=== PATIENT | male | born 1965 | race American Indian/Alaskan Native ===

== ENCOUNTER 2020-10-16 13:31 | Inpatient (IN) | payer MEDICAID ==
[2020-10-16] MEDS ORDERED: MORPHINE 4 MG/1 ML INJ IM ONE (14:40)
[2020-10-16] MEDS ORDERED: ONDANSETRON 4 MG ODT TAB PO SCH (14:40)
[2020-10-16] MEDS ORDERED: ONDANSETRON 4 MG/2 ML INJ ONE (14:59)
[2020-10-16] MEDS ORDERED: MORPHINE 4 MG/1 ML INJ IM SCH (15:30)
[2020-10-16 18:48] LABS: Basophils # (Auto) 0.1 K/mm3 (0.0-0.1); Basophils % (Auto) 1.3 % (0.0-1.8); Eosinophils # (Auto) 0.2 K/mm3 (0.0-0.4); Eosinophils % (Auto) 4.5 % (0.0-4.3); Hematocrit 38.1 % (35.5-45.6); Hemoglobin 12.2 gm/dl (11.8-15.2); Lymphocytes % (Auto) 18.3 % (13.4-35.0); Mean Corpuscular HGB Conc 32 % (32-34); Mean Corpuscular Volume 96 fl (84-94); Monocytes # (Auto) 0.4 K/mm3 (0.0-0.8); Monocytes % (Auto) 8.2 % (0.0-7.3); Red Blood Count 3.96 M/mm3 (3.65-5.03); Red Cell Distribution Width 18.9 % (13.2-15.2)
[2020-10-16 18:50] LABS: Platelet Count 74 K/mm3 (140-440)
[2020-10-16 18:58] LABS: INR 1.1 (0.87-1.13)
[2020-10-16 18:59] LABS: Partial Thromboplastin Time 33.8 Sec. (24.2-36.6)
--- NOTE | 2020-10-16 19:06 | Emergency Department Report ---
ED General Adult HPI - General Chief complaint: Extremity Problem,Nontraumatic Stated complaint: HEMORRHAGE Time Seen by Provider: 10/16/20 14:39 Source: patient, EMS Mode of arrival: Stretcher Limitations: No Limitations - History of Present Illness Initial comments: The patient presents to the emergency department via EMS from dialysis center for hemorrhaging from his AV fistula in his left antebrachium. Patient is a dialysis recipient who goes to dialysis on Tuesdays, , Saturdays. Today during dialysis the patient's AV fistula began to bleed. Patient denies lightheadedness, shortness breath, or chest pain. Patient arrives to the em ergency department with a compression dressing to the AV fistula with blood coming through. -: Sudden Severity scale (0 -10): 1 Quality: aching Consistency: constant Improves with: none Worsens with: none Associated Symptoms: denies other symptoms Treatments Prior to Arrival: none - Related Data Allergies Allergy/AdvReac Type Severity Reaction Status Date / Time No Known Allergies Allergy Unverified 10/16/20 15:03 ED Review of Systems ROS: Stated complaint: HEMORRHAGE Other details as noted in HPI Comment: All other systems reviewed and negative Constitutional: denies: chills, fever Eyes: denies: eye pain, eye discharge, vision change ENT: denies: ear pain, throat pain Respiratory: denies: cough, shortness of breath, wheezing Cardiovascular: denies: chest pain, palpitations Endocrine: no symptoms reported Gastrointestinal: denies: abdominal pain, nausea, diarrhea Genitourinary: denies: urgency, dysuria Musculoskeletal: denies: back pain, joint swelling, arthralgia Skin: denies: rash, lesions Neurological: denies: headache, weakness, paresthesias Psychiatric: denies: anxiety, depression Hematological/Lymphatic: denies: easy bleeding, easy bruising ED Past Medical Hx - Past Medical History Previous Medical History?: Yes Hx Hypertension: Yes Hx Renal Disease: Yes Hx HIV: Yes - Social History Smoking Status: Never Smoker Substance Use Type: None ED Physical Exam - General Limitations: No Limitations General appearance: alert, in no apparent distress - Head Head exam: Present: atraumatic, normocephalic - Eye Eye exam: Present: normal appearance - ENT ENT exam: Present: mucous membranes moist - Neck Neck exam: Present: normal inspection - Respiratory Respiratory exam: Present: normal lung sounds bilaterally. Absent: respiratory distress - Cardiovascular Cardiovascular Exam: Present: regular rate, normal rhythm. Absent: systolic murmur, diastolic murmur, rubs, gallop - GI/Abdominal GI/Abdominal exam: Present: soft, normal bowel sounds. Absent: distended, tenderness - Rectal Rectal exam: Present: deferred - Extremities Exam Extremities exam: Present: normal inspection - Back Exam Back exam: Present: normal inspection - Neurological Exam Neurological exam: Present: alert, oriented X3, CN II-XII intact. Absent: motor sensory deficit - Psychiatric Psychiatric exam: Present: normal affect, normal mood - Skin Skin exam: Present: warm, dry, intact, normal color. Absent: rash ED Course Vital Signs 10/16/20 10/16/20 10/16/20 13:35 13:55 15:23 Temperature 97.7 F Pulse Rate 78 76 Respiratory 16 14 Rate Blood Pressure 121/76 Blood Pressure 127/86 [Right] O2 Sat by Pulse 96 99 97 Oximetry 10/16/20 10/16/20 15:44 18:00 Temperature Pulse Rate 71 78 Respiratory 16 16 Rate Blood Pressure Blood Pressure 153/78 151/86 [Right] O2 Sat by Pulse 97 97 Oximetry ED Medical Decision Making - Lab Data Result diagrams: 10/16/20 18:35 10/16/20 18:35 Lab Results 10/16/20 10/16/20 Range/Units 18:35 18:35 WBC 5.4 (4.5-11.0) K/mm3 RBC 3.96 (3.65-5.03) M/mm3 Hgb 12.2 (11.8-15.2) gm/dl Hct 38.1 (35.5-45.6) % MCV 96 H (84-94) fl MCH 31 (28-32) pg MCHC 32 (32-34) % RDW 18.9 H (13.2-15.2) % Plt Count 74 L (140-440) K/mm3 Lymph % (Auto) 18.3 (13.4-35.0) % [place]y % (Auto) 8.2 H (0.0-7.3) % Eos % (Auto) 4.5 H (0.0-4.3) % Baso % (Auto) 1.3 (0.0-1.8) % Lymph # (Auto) 1.0 L (1.2-5.4) K/mm3 [place] # (Auto) 0.4 (0.0-0.8) K/mm3 Eos # (Auto) 0.2 (0.0-0.4) K/mm3 Baso # (Auto) 0.1 (0.0-0.1) K/mm3 Seg Neutrophils % 67.7 (40.0-70.0) % Seg Neutrophils # 3.6 (1.8-7.7) K/mm3 PT 14.8 (12.2-14.9) Sec. INR 1.10 (0.87-1.13) APTT 33.8 (24.2-36.6) Sec. - Medical Decision Making Full contact precautions were worn Tourniquet via a blood pressure cuff was applied to the patient's left upper extremity Careful removal of the patient's pressure dressing was done in the AV fistula has what appears to be erosion with possible removal of the scab Was able to apply pressure dressing to the fistula will control the bleeding Spoke to Dr. Sanford who asked to be added as a consult and the patient will be admitted Critical Care Time: Yes Critical care time in (mins) excluding proc time.: 35 Critical care attestation.: If time is entered above; I have spent that time in minutes in the direct care of this critically ill patient, excluding procedure time. ED Disposition Clinical Impression: Hemorrhage of arteriovenous fistula Disposition: OP ADMIT IP TO THIS HOSP Is pt being admited?: Yes Does the pt Need Aspirin: No Condition: Fair Referrals: PRIMARY CARE, [Primary Care Provider] - 3-5 Days
[2020-10-16 19:08] LABS: Albumin 3.4 g/dL (3.9-5); Calcium 8.9 mg/dL (8.4-10.2)
[2020-10-16] MEDS ORDERED: ONDANSETRON 4 MG/2 ML INJ IV PRN ×2 (19:17→23:20)
[2020-10-16] MEDS ORDERED: ACETAMINOPHEN 325 MG TAB PO PRN ×2 (19:17→23:20)
--- NOTE | 2020-10-16 19:40 | Event Note ---
Date: 10/16/[address] Ruiz. Pt currently asymptomatic and bleeding controlled. Will plan on placing permcath for dialysis access. Fistula will need to be surgically revised to allow use.
[2020-10-17] MEDS: FAMOTIDINE 20 MG/2 ML INJ IV SCH ×2 (00:20→13:23)
[2020-10-17 06:45] LABS: Basophils # (Auto) 0.1 K/mm3 (0.0-0.1); Basophils % (Auto) 1.9 % (0.0-1.8); Eosinophils # (Auto) 0.3 K/mm3 (0.0-0.4); Eosinophils % (Auto) 5.2 % (0.0-4.3); Hematocrit 37.6 % (35.5-45.6); Hemoglobin 12.1 gm/dl (11.8-15.2); Lymphocytes % (Auto) 20.5 % (13.4-35.0); Mean Corpuscular HGB Conc 32 % (32-34); Mean Corpuscular Volume 95 fl (84-94); Monocytes # (Auto) 0.4 K/mm3 (0.0-0.8); Monocytes % (Auto) 7.2 % (0.0-7.3); Red Blood Count 3.95 M/mm3 (3.65-5.03); Red Cell Distribution Width 19.3 % (13.2-15.2)
[2020-10-17 06:46] LABS: Platelet Count 85 K/mm3 (140-440)
[2020-10-17 06:57] LABS: Albumin 3.5 g/dL (3.9-5); Blood Urea Nitrogen 40 mg/dL (9-20); Calcium 8.5 mg/dL (8.4-10.2); Hemolysis Index 2
--- NOTE | 2020-10-17 07:11 | History and Physical Report ---
History of Present Illness Date of examination: 10/16/20 Date of admission: 10/16/20 23:20 Chief complaint: Bleeding from AV fistula site History of present illness: 55-year-old male with history of end-stage renal disease hypertension and HIV comes in for continuous bleeding from the AV fistula site on the left arm. Patient went to dialysis and had dialysis today. After dialysis the site of AV fistula was continuously bleeding because of which patient was sent to the emergency room. In the emergency room there was a 1 cm gap in the AV fistula. Pressure dressing was applied to stop the bleeding. Vascular surgery/IR was consulted. No syncope or lightheadedness. No chest pain or shortness of breath. Bleeding was controlled in the emergency room with Mehran wrap pressure dressing. No fever or chills. No exposure to Covid virus. - Past Medical History --Previous Medical History?: Yes --Hypertension: Yes --Renal Disease: Yes --HIV: Yes Past surgical history AV fistula - Social History Smoking Status: Never Smoker Substance Use Type: None Family history Htn Review of Systems ROS: Stated complaint: HEMORRHAGE Other details as noted in HPI Comment: All other systems reviewed and negative Constitutional: denies: chills, fever Eyes: denies: eye pain, eye discharge, vision change ENT: denies: ear pain, throat pain Respiratory: denies: cough, shortness of breath, wheezing Cardiovascular: denies: chest pain, palpitations Endocrine: no symptoms reported Gastrointestinal: denies: abdominal pain, nausea, diarrhea Genitourinary: denies: urgency, dysuria Musculoskeletal: denies: back pain, joint swelling, arthralgia Skin: denies: rash, lesions Neurological: denies: headache, weakness, paresthesias Psychiatric: denies: anxiety, depression Hematological/Lymphatic: denies: easy bleeding, easy bruising Medications and Allergies Allergies Allergy/AdvReac Type Severity Reaction Status Date / Time No Known Allergies Allergy Unverified 10/16/20 15:03 Active Meds: Active Medications Acetaminophen (Acetaminophen 325 Mg Tab) 650 mg PO Q4H PRN PRN Reason: Pain MILD(1-3)/Fever >100.5/HOWELL Last Admin: 10/16/20 23:12 Dose: 650 mg Documented by: Famotidine (Famotidine 20 Mg/2 Ml Inj) 10 mg IV [facility] Last Admin: 10/17/20 00:20 Dose: 10 mg Documented by: Hydromorphone HCl (Hydromorphone 1 Mg/1 Ml Inj) 0.5 mg IV Q3H PRN PRN Reason: Pain , Severe (7-10) Morphine Sulfate (Morphine 2 Mg/1 Ml Inj) 2 mg IV Q4H PRN PRN Reason: Pain, Moderate (4-6) Ondansetron HCl (Ondansetron 4 Mg/2 Ml Inj) 4 mg IV Q8H PRN PRN Reason: Nausea And Vomiting Sodium Chloride (Sodium Chloride 0.9% 10 Ml Flush Syringe) 10 ml IV BID [facility] Last Admin: 10/16/20 22:47 Dose: 10 ml Documented by: Sodium Chloride (Sodium Chloride 0.9% 10 Ml Flush Syringe) 10 ml IV PRN PRN PRN Reason: LINE FLUSH Exam - Constitutional Vitals: Temp Pulse Resp BP Pulse Ox 97.9 F 70 16 122/79 91 10/17/20 03:53 10/17/20 03:53 10/17/20 03:53 10/17/20 03:53 10/17/20 03:53 General appearance: Present: no acute distress, well-nourished - EENT Eyes: Present: PERRL ENT: hearing intact, clear oral mucosa - Neck Neck: Present: supple, normal ROM - Respiratory Respiratory effort: normal Respiratory: bilateral: CTA - Cardiovascular Heart Sounds: Present: S1 & S2. Absent: rub, click - Extremities Extremities: pulses symmetrical, No edema, abnormal (Bleeding from left AV fistula) Extremity abnormal: other (Bleeding from left AV fistula) Peripheral Pulses: within normal limits - Abdominal General gastrointestinal: Present: soft, non-tender, non-distended, normal bowel sounds Male genitourinary: Present: normal - Integumentary Integumentary: Present: clear, warm, dry - Musculoskeletal Musculoskeletal: gait normal, strength equal bilaterally - Psychiatric Psychiatric: appropriate mood/affect, intact judgment & insight - Neurologic Neurologic: CNII-XII intact, moves all extremities Results - Labs CBC & Chem 7: 10/17/20 05:12 10/16/20 18:35 Labs: Laboratory Last Values WBC 4.8 K/mm3 (4.5-11.0) 10/17/20 05:12 RBC 3.95 M/mm3 (3.65-5.03) 10/17/20 05:12 Hgb 12.1 gm/dl (11.8-15.2) 10/17/20 05:12 Hct 37.6 % (35.5-45.6) 10/17/20 05:12 MCV 95 fl (84-94) H 10/17/20 05:12 MCH 31 pg (28-32) 10/17/20 05:12 MCHC 32 % (32-34) 10/17/20 05:12 RDW 19.3 % (13.2-15.2) H 10/17/20 05:12 Plt Count 85 K/mm3 (140-440) L 10/17/20 05:12 Lymph % (Auto) 20.5 % (13.4-35.0) 10/17/20 05:12 [place] % (Auto) 7.2 % (0.0-7.3) 10/17/20 05:12 Eos % (Auto) 5.2 % (0.0-4.3) H 10/17/20 05:12 Baso % (Auto) 1.9 % (0.0-1.8) H 10/17/20 05:12 Lymph # (Auto) 1.0 K/mm3 (1.2-5.4) L 10/17/20 05:12 [place] # (Auto) 0.4 K/mm3 (0.0-0.8) 10/17/20 05:12 Eos # (Auto) 0.3 K/mm3 (0.0-0.4) 10/17/20 05:12 Baso # (Auto) 0.1 K/mm3 (0.0-0.1) 10/17/20 05:12 Seg Neutrophils % 65.2 % (40.0-70.0) 10/17/20 05:12 Seg Neutrophils # 3.2 K/mm3 (1.8-7.7) 10/17/20 05:12 PT 14.8 Sec. (12.2-14.9) 10/16/20 18:35 INR 1.10 (0.87-1.13) 10/16/20 18:35 APTT 33.8 Sec. (24.2-36.6) 10/16/20 18:35 Sodium 133 mmol/L (137-145) L 10/16/20 18:35 Potassium 4.7 mmol/L (3.6-5.0) 10/16/20 18:35 Chloride 94.5 mmol/L (98-107) L 10/16/20 18:35 Carbon Dioxide 23 mmol/L (22-30) 10/16/20 18:35 Anion Gap 20 mmol/L 10/16/20 18:35 BUN 36 mg/dL (9-20) H 10/16/20 18:35 Creatinine 8.4 mg/dL (0.8-1.3) H 10/16/20 18:35 Estimated GFR 8 ml/min 10/16/20 18:35 BUN/Creatinine Ratio 4 % 10/16/20 18:35 Glucose 70 mg/dL (75-100) L 10/16/20 18:35 POC Glucose 61 mg/dL (70-105) L 10/16/20 22:38 Calcium 8.9 mg/dL (8.4-10.2) 10/16/20 18:35 Total Bilirubin 0.30 mg/dL (0.1-1.2) 10/16/20 18:35 AST 14 units/L (5-40) 10/16/20 18:35 ALT 5 units/L (7-56) L 10/16/20 18:35 Alkaline Phosphatase 248 units/L (35-129) H 10/16/20 18:35 Total Protein 7.0 g/dL (6.3-8.2) 10/16/20 18:35 Albumin 3.4 g/dL (3.9-5) L 10/16/20 18:35 Albumin/Globulin Ratio 1.0 % 10/17/20 05:12 Franco/IV: Voiding Method Toilet Assessment and Plan Advance Directives: Yes (Full code) VTE prophylaxis?: Chemical Plan of care discussed with patient/family: Yes - Patient Problems (1) Hemorrhage of arteriovenous fistula Current Visit: Yes Status: Acute Qualifiers: Encounter type: initial encounter Qualified Code(s): T82.838A - Hemorrhage due to vascular prosthetic devices, implants and grafts, initial encounter Plan to address problem: For AV fistula repair in the morning Vascular surgery/IR consulted (2) End stage renal disease on dialysis Current Visit: Yes Status: Chronic Plan to address problem: Continue hemodialysis as per schedule (3) Hypertension Current Visit: Yes Status: Chronic Qualifiers: Hypertension type: primary hypertension Qualified Code(s): I10 - Essential (primary) hypertension Plan to address problem: Continue antihypertensives (4) HIV (human immunodeficiency virus infection) Current Visit: Yes Status: Chronic Qualifiers: HIV symptom status: asymptomatic, with no history of HIV-related illness Qualified Code(s): Z21 - Asymptomatic human immunodeficiency virus [HIV] infection status Plan to address problem: No home medications were reconciliation (5) DVT prophylaxis Current Visit: Yes Status: Acute Plan to address problem: On SCDs and GI prophylaxis
[2020-10-17 07:20] LABS: Alanine Aminotransferase < 5 units/L (7-56); BUN/Creatinine Ratio 4
--- NOTE | 2020-10-17 09:34 | Consultation ---
History of Present Illness - Reason for Consult Consult date: 10/17/20 Ruptured fistula - History of Present Illness Patient with a history of end-stage renal disease on hemodialysis through a left forearm Abdiel fistula. I the patient's last normal dialysis was Wednesday. On Wednesday, the patient was at [facility] and a small scab overlying his fistula became dislodged with the patient experienced significant blood loss. He presented to the emergency department and his blood loss temporized. On examination, the patient has a palpable thrill below and above his pressure dressing in his left forearm. Past History Past Medical History: dialysis, ESRD Past Surgical History: Other (Left Abdiel) Social history: no significant social history Family history: no significant family history Medications and Allergies Allergies Allergy/AdvReac Type Severity Reaction Status Date / Time No Known Allergies Allergy Unverified 10/16/20 15:03 Active Meds: Active Medications Acetaminophen (Acetaminophen 325 Mg Tab) 650 mg PO Q4H PRN PRN Reason: Pain MILD(1-3)/Fever >100.5/HOWELL Last Admin: 10/16/20 23:12 Dose: 650 mg Documented by: Famotidine (Famotidine 20 Mg/2 Ml Inj) 10 mg IV QAM [facility] Last Admin: 10/17/20 00:20 Dose: 10 mg Documented by: Hydromorphone HCl (Hydromorphone 1 Mg/1 Ml Inj) 0.5 mg IV Q3H PRN PRN Reason: Pain , Severe (7-10) Morphine Sulfate (Morphine 2 Mg/1 Ml Inj) 2 mg IV Q4H PRN PRN Reason: Pain, Moderate (4-6) Ondansetron HCl (Ondansetron 4 Mg/2 Ml Inj) 4 mg IV Q8H PRN PRN Reason: Nausea And Vomiting Sodium Chloride (Sodium Chloride 0.9% 10 Ml Flush Syringe) 10 ml IV BID [facility] Last Admin: 10/16/20 22:47 Dose: 10 ml Documented by: Sodium Chloride (Sodium Chloride 0.9% 10 Ml Flush Syringe) 10 ml IV PRN PRN PRN Reason: LINE FLUSH Review of Systems All systems: negative Exam - Constitutional Vitals: Temp Pulse Resp BP Pulse Ox 98.0 F 71 19 137/82 99 10/17/20 07:59 10/17/20 07:59 10/17/20 07:59 10/17/20 07:59 10/17/20 07:59 General appearance: Present: no acute distress - EENT Eyes: Present: EOM intact ENT: hearing intact - Neck Neck: Present: supple - Respiratory Respiratory effort: normal - Extremities Extremities: abnormal - Abdominal General gastrointestinal: Present: deferred Male genitourinary: Present: deferred - Rectal Rectal Exam: deferred - Psychiatric Psychiatric: appropriate mood/affect, cooperative Results - Labs CBC & Chem 7: 10/17/20 05:12 10/17/20 05:12 Labs: Abnormal lab results 10/16/20 10/16/20 10/16/20 Range/Units 18:35 18:35 22:38 MCV 96 H (84-94) fl RDW 18.9 H (13.2-15.2) % Plt Count 74 L (140-440) K/mm3 [place] % (Auto) 8.2 H (0.0-7.3) % Eos % (Auto) 4.5 H (0.0-4.3) % Baso % (Auto) (0.0-1.8) % Lymph # (Auto) 1.0 L (1.2-5.4) K/mm3 Sodium 133 L (137-145) mmol/L Chloride 94.5 L (98-107) mmol/L BUN 36 H (9-20) mg/dL Creatinine 8.4 H (0.8-1.3) mg/dL Glucose 70 L (75-100) mg/dL POC Glucose 61 L (70-105) mg/dL ALT 5 L (7-56) units/L Alkaline Phosphatase 248 H (35-129) units/L Albumin 3.4 L (3.9-5) g/dL 10/17/20 10/17/20 Range/Units 05:12 05:12 MCV 95 H (84-94) fl RDW 19.3 H (13.2-15.2) % Plt Count 85 L (140-440) K/mm3 [place] % (Auto) (0.0-7.3) % Eos % (Auto) 5.2 H (0.0-4.3) % Baso % (Auto) 1.9 H (0.0-1.8) % Lymph # (Auto) 1.0 L (1.2-5.4) K/mm3 Sodium (137-145) mmol/L Chloride (98-107) mmol/L BUN 40 H (9-20) mg/dL Creatinine 9.6 H (0.8-1.3) mg/dL Glucose 54 L (75-100) mg/dL POC Glucose (70-105) mg/dL ALT < 5 L (7-56) units/L Alkaline Phosphatase 261 H (35-129) units/L Albumin 3.5 L (3.9-5) g/dL Assessment and Plan Patient will be brought down for placement of PermCath for dialysis access. At that time, we will evaluate the patient's forearm fistula. Based on findings, the patient will likely require surgical revision of his fistula. This will be scheduled for tomorrow.
[2020-10-17] MEDS ORDERED: DEXTROSE 50% IN WATER (25GM) 50 ML SYRINGE IV ONE ×3 (09:43→10:20)
[2020-10-17] MEDS ORDERED: SODIUM CHLORIDE 0.9% 500 ML 1,000 ML ONE (10:05)
[2020-10-17] MEDS ORDERED: HEPARIN/NS 5000 UNIT/500ML 1,000 ML IR ONE (10:08)
[2020-10-17] MEDS: MIDAZOLAM 5 MG/5 ML INJ MDV IV ONE ×2 (10:41→11:28)
[2020-10-17] MEDS: fentaNYL 100 MCG/2 ML INJ ONE ×3 (10:41→11:33)
[2020-10-17] MEDS: LIDOCAINE (1%) 10 MG/1 ML VIAL 20 ML MDV ONE ×2 (10:45→11:00)
[2020-10-17] MEDS: HEPARIN 10,000 UNITS/10 ML VIAL ONE ×2 (11:12→11:13)
[2020-10-17] MEDS ORDERED: LIDOCAINE (2%) 20 MG/1 ML VIAL 20 ML MDV INFILTRATI ONE (11:17)
--- NOTE | 2020-10-17 11:51 | Operative Report ---
Operative Report Operative Report: Exam: Ultrasound and fluoroscopic guided placement of tunneled hemodialysis catheter, left Abdiel fistulogram with venoplasty and surgical closure of wound Clinical indication: Patient with a history of end-stage renal disease on hemodialysis through a left Abdiel fistula. Patient ruptured his Abdiel fistula yesterday Date: 10/17/2020 Procedure: Following an explanation of the risk, benefits and alternatives; written informed consent was obtained. The patient was brought to the angiographic suite and placed in supine position on the examination table. Initial ultrasound evaluation of the patient's right neck demonstrated a patent right internal jugular vein. The patient's right neck was prepped and draped in the usual sterile fashion. 1% lidocaine was used for anesthesia. Under ultrasound guidance, the right internal jugular vein was cannulated with a 7 cm 18-gauge needle. A 0.035 guidewire only advanced 2 to 3 cm distally. Ultrasound of the inferior aspect of the internal jugular vein demonstrated significant narrowing likely tapering into occlusion. Additional lidocaine was administered to the patient's right neck and the external jugular vein was cannulated. A 0.018 guidewire was advanced through the external jugular vein. The needle was removed and a microsheath placed. Contrast was injected through the micro sheath which demonstrates occlusion of the distal external jugular vein with only collateral flow extending towards the heart. Given no inline flow from the right side, decision was made to approach from the left. Initial ultrasound evaluation of the patient's left neck demonstrated a patent left internal jugular vein. The patient's left neck was prepped and draped in the usual sterile fashion. 1% lidocaine was used for anesthesia. Under ultrasound guidance, the internal jugular vein was cannulated with a 7 cm 21-gauge needle. A 0.018 guidewire was advanced under fluoroscopy to the right atrium. The needle was removed and a microsheath placed. The 0.018 guidewire was exchanged for a 0.035 guidewire which was advanced into the IVC for anchorin g and to document intravenous positioning. An appropriate catheter site was chosen along the left chest wall. 1% lidocaine was used for anesthesia at the catheter exit site and along the tunnel tract. A Bard 23 cm glidepath tunneled hemodialysis catheter was then tunneled antegrade from the catheter exit site to the venotomy site. Following serial dilation over the guidewire under fluoroscopy a 15 Danish peel- away sheath was placed over the guidewire under fluoroscopy and advanced centrally. The guidewire and trocar were removed and the catheter advanced through the peel-away sheath the position the tip in the cavoatrial junction. The peel-away sheath was removed. Both ports flushed and aspirated easily and were then locked with appropriate volumes of heparin. The venotomy was closed using 4-0 Vicryl suture and Dermabond. 3-0 Vicryl suture was used to approximate the catheter exit site and to anchor the catheter. Attention was then turned to the patient's forearm Abdiel fistula. A palpable thrill was present above and below the patient's pressure dressing. The patient's forearm was sterilely prepped and draped. 1% lidocaine was used for anesthesia. The fistula was accessed below the pressure dressing using a 7 cm 18-gauge needle. A 0.035 guidewire was advanced centrally easily. The needle was removed and a microsheath placed. Contrast was injected to the micro sheath was demonstrated that the fistula remains patent. 2 large pseudoaneurysms are identified. The 0.035 guidewire was again advanced through the micro sheath and the micro sheath exchanged for a 7 Danish vascular sheath. Contrast was injected through the vascular sheath and an appropriate occlusion site was identified proximal to the first pseudoaneurysm. A 10 mm x 40 mm balloon was then advanced over the guidewire into the proximal aspect of the fistula and insufflated. Additional pressure externally was also utilized to occlude the fistula temporarily. The pressure dressing was then removed. A large erosive area was identified overlying the first of the 2 pseudoaneurysms. It measures approximately 1.3 cm in diameter. The erosion was approximated using interrupted 3-0 Vicryl suture. The balloon was deflated and pressure removed which demonstrated adequate hemostasis. The sheath was then removed and hemostasis achieved at the access site using 4-0 Vicryl suture. Pressure dressing was then reapplied. The patient tolerated the procedure well. There were no immediate postprocedure complications. Conscious sedation was performed under the guidance of radiologic nursing. Continuous cardiopulmonary monitoring was utilized. Impression: Ultrasound and fluoroscopic guided placement of left internal jugular vein tunneled hemodialysis catheter. 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 Numeral 3) fistulogram with venoplasty of the patient's left forearm Abdiel fistula. Normal 4) approximation of a 1.2 cm erosion in the first pseudoaneurysm using 3- 0 Vicryl suture interrupted. The patient will need to be scheduled for revision versus ligation of his Abdiel fistula tomorrow.
--- NOTE | 2020-10-17 13:06 | Progress Note ---
Assessment and Plan Assessment and plan: - (1) Hemorrhage of arteriovenous fistula Current Visit: Yes Status: Acute Qualifiers: Encounter type: initial encounter Qualified Code(s): T82.838A - Hemorrhage due to vascular prosthetic devices, implants and grafts, initial encounter Plan to address problem: For AV fistula repair in the morning Vascular surgery/IR consulted (2) End stage renal disease on dialysis Current Visit: Yes Status: Chronic Plan to address problem: Continue hemodialysis as per schedule (3) Hypertension Current Visit: Yes Status: Chronic Qualifiers: Hypertension type: primary hypertension Qualified Code(s): I10 - Essential (primary) hypertension Plan to address problem: Continue antihypertensives (4) HIV (human immunodeficiency virus infection) Current Visit: Yes Status: Chronic Qualifiers: HIV symptom status: asymptomatic, with no history of HIV-related illness Qualified Code(s): Z21 - Asymptomatic human immunodeficiency virus [HIV] infection status Plan to address problem: No home medications were reconciliation (5) DVT prophylaxis Current Visit: Yes Status: Acute Plan to address problem: On [facility] [place] Patient presented with bleeding from left av fistula. He was taken to OR and had Ultrasound and fluoroscopic guided placement of tunneled hemodialysis catheter, left Abdiel fistulogram with venoplasty and surgical closure of wound. His Dining Services Manager does not come here. His last dialysis was on Wednesday, 2 days ago. Will consult Nephrology front office medical assistant History Interval history: Patient presented with bleeding from left av fistula Hospitalist Physical - Physical exam Narrative exam: Gen: Not in acute distress, lying in bed HEENT: Normocephalic, atraumatic Neck : supple, no JVD Heart:S1 and S2 reg, no murmurs, rubs or gallop Lungs: clear to auscultation bilaterally, no wheeze Abd: Soft , non tender, non distended, normal bowel sounds Ext: Dressing over surgical site left forearm, no cyanosis Neuro: Awake, alert, oriented, moves all ext - Constitutional Vitals: Temp Pulse Resp BP Pulse Ox 98.0 F 71 19 137/82 99 10/17/20 07:59 10/17/20 07:59 10/17/20 07:59 10/17/20 07:59 10/17/20 07:59 General appearance: Present: no acute distress Results - Labs CBC & Chem 7: 10/17/20 05:12 10/17/20 05:12 Labs: Laboratory Last Values WBC 4.8 K/mm3 (4.5-11.0) 10/17/20 05:12 RBC 3.95 M/mm3 (3.65-5.03) 10/17/20 05:12 Hgb 12.1 gm/dl (11.8-15.2) 10/17/20 05:12 Hct 37.6 % (35.5-45.6) 10/17/20 05:12 MCV 95 fl (84-94) H 10/17/20 05:12 MCH 31 pg (28-32) 10/17/20 05:12 MCHC 32 % (32-34) 10/17/20 05:12 RDW 19.3 % (13.2-15.2) H 10/17/20 05:12 Plt Count 85 K/mm3 (140-440) L 10/17/20 05:12 Lymph % (Auto) 20.5 % (13.4-35.0) 10/17/20 05:12 [place] % (Auto) 7.2 % (0.0-7.3) 10/17/20 05:12 Eos % (Auto) 5.2 % (0.0-4.3) H 10/17/20 05:12 Baso % (Auto) 1.9 % (0.0-1.8) H 10/17/20 05:12 Lymph # (Auto) 1.0 K/mm3 (1.2-5.4) L 10/17/20 05:12 [place] # (Auto) 0.4 K/mm3 (0.0-0.8) 10/17/20 05:12 Eos # (Auto) 0.3 K/mm3 (0.0-0.4) 10/17/20 05:12 Baso # (Auto) 0.1 K/mm3 (0.0-0.1) 10/17/20 05:12 Seg Neutrophils % 65.2 % (40.0-70.0) 10/17/20 05:12 Seg Neutrophils # 3.2 K/mm3 (1.8-7.7) 10/17/20 05:12 PT 14.8 Sec. (12.2-14.9) 10/16/20 18:35 INR 1.10 (0.87-1.13) 10/16/20 18:35 APTT 33.8 Sec. (24.2-36.6) 10/16/20 18:35 Sodium 138 mmol/L (137-145) 10/17/20 05:12 Potassium 4.9 mmol/L (3.6-5.0) 10/17/20 05:12 Chloride 99.6 mmol/L (98-107) 10/17/20 05:12 Carbon Dioxide 22 mmol/L (22-30) 10/17/20 05:12 Anion Gap 21 mmol/L 10/17/20 05:12 BUN 40 mg/dL (9-20) H 10/17/20 05:12 Creatinine 9.6 mg/dL (0.8-1.3) H 10/17/20 05:12 Estimated GFR 7 ml/min 10/17/20 05:12 BUN/Creatinine Ratio 4 % 10/17/20 05:12 Glucose 54 mg/dL (75-100) L 10/17/20 05:12 POC Glucose 78 mg/dL (70-105) 10/17/20 10:41 Calcium 8.5 mg/dL (8.4-10.2) 10/17/20 05:12 Total Bilirubin 0.40 mg/dL (0.1-1.2) 10/17/20 05:12 AST 12 units/L (5-40) 10/17/20 05:12 ALT < 5 units/L (7-56) L 10/17/20 05:12 Alkaline Phosphatase 261 units/L (35-129) H 10/17/20 05:12 Total Protein 7.1 g/dL (6.3-8.2) 10/17/20 05:12 Albumin 3.5 g/dL (3.9-5) L 10/17/20 05:12 Albumin/Globulin Ratio 1.0 % 10/17/20 05:12 Franco/IV: Voiding Method Toilet Active Medications - Current Medications Current Medications: Generic Name Dose Route Start Last Admin Trade Name Freq PRN Reason Stop Dose Admin Acetaminophen 650 mg 10/16/20 19:17 10/16/20 23:12 Acetaminophen 325 Mg Tab PO 650 mg Q4H PRN Administration Pain MILD(1-3)/Fever >100.5/HOWELL Famotidine 10 mg 10/16/20 23:45 10/17/20 00:20 Famotidine 20 Mg/2 Ml Inj IV 10 mg QAM STEFFEN Administration Hydromorphone HCl 0.5 mg 10/16/20 23:20 Hydromorphone 1 Mg/1 Ml Inj IV Q3H PRN Pain , Severe (7-10) Morphine Sulfate 2 mg 10/16/20 23:20 Morphine 2 Mg/1 Ml Inj IV Q4H PRN Pain, Moderate (4-6) Ondansetron HCl 4 mg 10/16/20 19:17 Ondansetron 4 Mg/2 Ml Inj IV Q8H PRN Nausea And Vomiting Sodium Chloride 10 ml 10/16/20 22:00 10/16/20 22:47 Sodium Chloride 0.9% 10 Ml Flush Syringe IV 10 ml BID STEFFEN Administration Sodium Chloride 10 ml 10/16/20 19:17 Sodium Chloride 0.9% 10 Ml Flush Syringe IV PRN PRN LINE FLUSH
[2020-10-17] MEDS: MORPHINE 2 MG/1 ML INJ IV PRN ×2 (13:34→21:05)
[2020-10-17] MEDS ORDERED: SODIUM CHLORIDE 0.9% 100 ML IV PRN (14:19)
[2020-10-17 16:12] LABS: Hepatitis B Surface Antigen Non-Reactive (Negative); Hepatitis C Virus Antibody Non-Reactive (NonReactive)
[2020-10-18] MEDS: HYDROmorphone 1 MG/1 ML INJ IV PRN ×5 (00:50→22:31)
[2020-10-18] MEDS ORDERED: fentaNYL 100 MCG/2 ML INJ ONE ×3 (07:08→10:57)
[2020-10-18] MEDS ORDERED: BUPIVACAINE/PF (0.5%) 5 MG/1 ML 30 ML VIAL INFILTRATI ONE ×2 (07:28→09:49)
[2020-10-18] MEDS ORDERED: HEPARIN 10,000 UNITS/10 ML VIAL ONE (07:28)
[2020-10-18] MEDS ORDERED: SODIUM CHLORIDE 0.9% 500 ML 500 ML ONE (07:28)
--- NOTE | 2020-10-18 07:45 | Anesthesia Day of Surgery ---
Anesthesia Day of Surgery - Day of Surgery Patient Examined: Yes Patient H&P Reviewed: Yes Patient is NPO: Yes
--- NOTE | 2020-10-18 07:47 | Anesthesia Consultation ---
Anesthesia Consult and Med Hx Date of service: 10/18/20 - Airway Anesthetic Teeth Evaluation: Poor ROM Head & Neck: Adequate Mental/Hyoid Distance: Adequate Mallampati Class: Class III Intubation Access Assessment: Possibly Difficult - Pre-Operative Health Status ASA Pre-Surgery Classification: ASA3 Proposed Anesthetic Plan: General - Pulmonary Hx Smoking: No - Cardiovascular System Hx Hypertension: Yes - Endocrine Hx Renal Disease: Yes Hx End Stage Renal Disease: Yes (Last HD Wednesday) - Additional Comments Anesthesia Medical History Comments: HIV+
[2020-10-18] MEDS ORDERED: propofoL 200 MG/20 ML VIAL IV ONE (07:52)
[2020-10-18] MEDS ORDERED: ONDANSETRON 4 MG/2 ML INJ IV PRN (08:00)
[2020-10-18] MEDS ORDERED: HYDROmorphone 1 MG/1 ML INJ IV PRN ×2 (08:00)
--- NOTE | 2020-10-18 08:08 | Consultation ---
History of Present Illness - Reason for Consult Consult date: 10/18/20 end stage renal disease Past History Past Medical History: dialysis, ESRD Past Surgical History: Other (Left Abdiel) Social history: no significant social history Family history: no significant family history Medications and Allergies Allergies Allergy/AdvReac Type Severity Reaction Status Date / Time No Known Allergies Allergy Unverified 10/16/20 15:03 Home Medications Medication Instructions Recorded Confirmed Last Taken Type Amiodarone [Cordarone 200 MG TAB] 200 mg PO DAILY 10/17/20 10/17/20 1 Day Ago History ~10/16/20 Aspirin EC [Halfprin EC] 81 mg PO QDAY 10/17/20 10/17/20 1 Day Ago History ~10/16/20 AtorvaSTATin [Lipitor] 40 mg PO QHS 10/17/20 10/17/20 1 Day Ago History ~10/16/20 Dolutegravir [Tivicay] 50 mg PO DAILY 10/17/20 10/17/20 1 Day Ago History ~10/16/20 Midodrine [Proamatine] 5 mg PO TID 10/17/20 10/17/20 1 Day Ago History ~10/16/20 Rilpivirine (Nf) [Edurant (Nf)] 25 mg PO QDAY 10/17/20 10/17/20 1 Day Ago History ~10/16/20 Tenofovir [Viread] 300 mg PO 1XW 10/17/20 10/17/20 3 Days Ago History ~10/14/20 carvediloL [Coreg] 3.125 mg PO BID 10/17/20 10/17/20 1 Day Ago History ~10/16/20 Active Meds: Active Medications Acetaminophen (Acetaminophen 325 Mg Tab) 650 mg PO Q4H PRN PRN Reason: Pain MILD(1-3)/Fever >100.5/HOWELL Last Admin: 10/16/20 23:12 Dose: 650 mg Documented by: Famotidine (Famotidine 10 Mg Tab) 10 mg PO QAM STEFFEN Hydromorphone HCl (Hydromorphone 1 Mg/1 Ml Inj) 0.5 mg IV Q3H PRN PRN Reason: Pain , Severe (7-10) Last Admin: 10/18/20 00:50 Dose: 0.5 mg Documented by: Hydromorphone HCl (Hydromorphone 1 Mg/1 Ml Inj) 0.25 mg IV Q10MIN PRN PRN Reason: Pain, Moderate (4-6) Stop: 10/18/20 17:00 Hydromorphone HCl (Hydromorphone 1 Mg/1 Ml Inj) 0.5 mg IV Q10MIN PRN PRN Reason: Pain , Severe (7-10) Stop: 10/18/20 17:00 Sodium Chloride (Nacl 0.9%) 100 mls @ 999 mls/hr IV ZOHAIB PRN PRN Reason: Hypotension Morphine Sulfate (Morphine 2 Mg/1 Ml Inj) 2 mg IV Q4H PRN PRN Reason: Pain, Moderate (4-6) Last Admin: 10/17/20 21:05 Dose: 2 mg Documented by: Ondansetron HCl (Ondansetron 4 Mg/2 Ml Inj) 4 mg IV Q8H PRN PRN Reason: Nausea And Vomiting Last Admin: 10/17/20 13:23 Dose: 4 mg Documented by: Ondansetron HCl (Ondansetron 4 Mg/2 Ml Inj) 4 mg IV ONCE PRN PRN Reason: Nausea And Vomiting Stop: 10/18/20 17:00 Sodium Chloride (Sodium Chloride 0.9% 10 Ml Flush Syringe) 10 ml IV BID STEFFEN Last Admin: 10/17/20 21:06 Dose: 10 ml Documented by: Sodium Chloride (Sodium Chloride 0.9% 10 Ml Flush Syringe) 10 ml IV PRN PRN PRN Reason: LINE FLUSH Exam - Vital Signs Vital signs: Vital Signs Pulse Resp BP Pulse Ox 78 16 121/76 96 10/16/20 13:35 10/16/20 13:35 10/16/20 13:35 10/16/20 13:35 Results - Lab Results 10/17/20 05:12 10/17/20 05:12 Most recent lab results Calcium 8.5 mg/dL (8.4-10.2) 10/17/20 05:12
[2020-10-18] MEDS ORDERED: ePHEDrine SULFATE 50 MG/1 ML INJ ONE (09:12)
[2020-10-18] MEDS ORDERED: rifAMPin 600 MG VIAL ONE (09:21)
[2020-10-18] MEDS ORDERED: SODIUM CHLORIDE 0.9% 250ML 250 ML ONE (09:21)
[2020-10-18] MEDS ORDERED: HEPARIN 10,000 UNITS/10 ML VIAL IR ONE (09:50)
[2020-10-18] MEDS ORDERED: SODIUM CHLORIDE 0.9% 500 ML IVPB IRRIGATION ONE (09:51)
[2020-10-18] MEDS ORDERED: SODIUM CHLORIDE 0.9% 250 ML IVPB IR ONE (09:53)
[2020-10-18] MEDS ORDERED: rifAMPin 600 MG VIAL IV ONE (09:54)
[2020-10-18] MEDS ORDERED: SODIUM CHLORIDE 0.9% IRR 1,500 ML BOTTLE IR ONE (09:55)
--- NOTE | 2020-10-18 10:54 | Event Note ---
Date: 10/18/20 Attempted to see patient today. He is off the floor in [employer]. He is s/p hemodialysis yesterday. Will plan for next treatment tomorrow.
--- NOTE | 2020-10-18 11:41 | Operative Report ---
Operative Report Operative Report: Date of Procedure: 10/18/2020 Pre-operative Diagnosis: Complications of Dialysis Access Post-operative Diagnosis: Same Procedure(s): 1. Revision of Left Arm Arteriovenous Fistula with Excision of Pseudoaneurysm and Repair with Interposition 7 mm Bovine Artegraft Surgeon: Thomas Bowen M.D. Steam Blocker: None Anesthesia: General Endotracheal Anesthesia EBL: 200 mL Counts: Correct Complications: None Condition: Stable Findings: Palpable thrill in left arm AV access at the completion of the case. Specimen: Left arm arteriovenous access pseudoaneurysm was sent to pathology. Indication: The patient is a 55-year-old male with a history of end-stage renal disease who is on hemodialysis through a left Abdiel fistula. He presented with an ulceration over the access that spontaneously bleed. He had to wait permacath insertion with fistulogram and angioplasty of an outflow stenosis. He is in n eed of revision of the fistula to prevent further bleeding. He was given the risk, benefits, and alternative procedures and consented to the procedure. Description of Procedure: The patient was brought to the operating room and laid in supine position. After a timeout was performed general endotracheal anesthesia was achieved and his left arm was prepped and draped in normal sterile fashion. A longitudinal incision was created over the fistula extending from the arterial inflow, across the pseudoaneurysm, to a normal part of the venous outflow. A combination of cautery and sharp dissection using the curved Mayos was used to continue the incision down to the fistula. Sharp dissection using the curved Mayos was used to circumferentially dissect around the arterial inflow and this was controlled using a vessel loop. The curved Mayos were then used to sharply dissect around the normal portion of the venous outflow and this was controlled with a vessel loop. Then dissected circumferentially around the pseudoaneurysm and once this was dissected circumferentially the arterial inflow and venous outflow was clamped with angled DeBakey clamps and the pseudoaneurysm with excised and passed off of the specimen. I then used a Julisa-Wick tunneler to tunnel on the lateral flap and a 7 mm bovine Artegraft, that had been soaked in rifampin, was pulled through the tract. This was infused with heparinized saline to ensure that it had not been kinked or twisted and then the arterial inflow end of the graft was beveled. The arterial inflow of the fistula was then beveled and an end-to-end anastomosis was achieved using two 5-0 Prolene's in running fashion. The graft was then clamped, using an angled DeBakey clamp, just distal to the anastomosis and the clamp was removed from the arterial inflow of the fistula. Hemostasis was adequate so the graft was cut to length and beveled in preparation for the venous outflow stenosis. The venous outflow of the fistula was the level it end-to-end anastomosis was created between the graft and the fistula using two 5-0 Prolene's in running fashion. Prior to completing the anastomosis both the venous outflow and the arterial inflow were flashed and reclamped. The anastomosis was flushed with heparinized saline and the anastomosis was completed. All clamps were removed allowing flow through the graft which had a palpable thrill. Hemostasis within the wound was achieved with a combination of direct pressure and cautery. Once hemostasis was achieved for the wound was anesthetized with 0.5% Marcaine and then closed in 2 layers using 3-0 Vicryl in running fashion the deep dermal layer and 4-0 Monocryl in running fashion the subcuticular layer and then dressed with Dermabond. The patient tolerated the procedure well. All sponge, needle, and instrument counts were correct. The patient was transported to the recovery area in stable condition.
--- NOTE | 2020-10-18 12:39 | Progress Note ---
Assessment and Plan Assessment and plan: - (1) Hemorrhage of arteriovenous fistula Current Visit: Yes Status: Acute Qualifiers: Encounter type: initial encounter Qualified Code(s): T82.838A - Hemorrhage due to vascular prosthetic devices, implants and grafts, initial encounter Plan to address problem: For AV fistula repair in the morning Vascular surgery/IR consulted (2) End stage renal disease on dialysis Current Visit: Yes Status: Chronic Plan to address problem: Continue hemodialysis as per schedule (3) Hypertension Current Visit: Yes Status: Chronic Qualifiers: Hypertension type: primary hypertension Qualified Code(s): I10 - Essential (primary) hypertension Plan to address problem: Continue antihypertensives (4) HIV (human immunodeficiency virus infection) Current Visit: Yes Status: Chronic Qualifiers: HIV symptom status: asymptomatic, with no history of HIV-related illness Qualified Code(s): Z21 - Asymptomatic human immunodeficiency virus [HIV] infection status Plan to address problem: No home medications were reconciliation (5) DVT prophylaxis Current Visit: Yes Status: Acute Plan to address problem: On [facility] 10/17/30 Patient presented with bleeding from left av fistula. He was taken to OR and had Ultrasound and fluoroscopic guided placement of tunneled hemodialysis catheter, left Abdiel fistulogram with venoplasty and surgical closure of wound. His Dip Filler does not come here. His last dialysis was on Wednesday, 2 days ago. Will consult Nephrology pulmonary nurse practitioner. 10/18/20 Patient with ESRD on hemodialysis. He presented with bleeding from left av fistula. He was taken to OR on 10/17 and had Ultrasound and fluoroscopic guided placement of tunneled hemodialysis catheter, left Abdiel fistulogram with venoplasty and surgical closure of wound. Today 10/18 had Revision of Left Arm Arteriovenous Fistula with Excision of Pseudoaneurysm and Repair with Interposition 7 mm Bovine Artegraft. History Interval history: Patient presented with bleeding from left av fistula s/p surg Hospitalist Physical - Physical exam Narrative exam: Gen: Not in acute distress, lying in bed HEENT: Normocephalic, atraumatic Neck : supple, no JVD Heart:S1 and S2 reg, no murmurs, rubs or gallop Lungs: clear to auscultation bilaterally, no wheeze Abd: Soft , non tender, non distended, normal bowel sounds Ext: Dressing over surgical site left forearm, no cyanosis Neuro: Awake, alert, oriented, moves all ext - Constitutional Vitals: Temp Pulse Resp BP Pulse Ox 97.1 F L 98 H 21 121/73 96 10/18/20 11:31 10/18/20 11:45 10/18/20 11:45 10/18/20 11:45 10/18/20 11:45 General appearance: Present: no acute distress Results - Labs CBC & Chem 7: 10/19/20 05:38 10/17/20 05:12 Labs: Laboratory Last Values WBC 4.8 K/mm3 (4.5-11.0) 10/17/20 05:12 RBC 3.95 M/mm3 (3.65-5.03) 10/17/20 05:12 Hgb 12.1 gm/dl (11.8-15.2) 10/17/20 05:12 Hct 37.6 % (35.5-45.6) 10/17/20 05:12 MCV 95 fl (84-94) H 10/17/20 05:12 MCH 31 pg (28-32) 10/17/20 05:12 MCHC 32 % (32-34) 10/17/20 05:12 RDW 19.3 % (13.2-15.2) H 10/17/20 05:12 Plt Count 85 K/mm3 (140-440) L 10/17/20 05:12 Lymph % (Auto) 20.5 % (13.4-35.0) 10/17/20 05:12 [place] % (Auto) 7.2 % (0.0-7.3) 10/17/20 05:12 Eos % (Auto) 5.2 % (0.0-4.3) H 10/17/20 05:12 Baso % (Auto) 1.9 % (0.0-1.8) H 10/17/20 05:12 Lymph # (Auto) 1.0 K/mm3 (1.2-5.4) L 10/17/20 05:12 [place] # (Auto) 0.4 K/mm3 (0.0-0.8) 10/17/20 05:12 Eos # (Auto) 0.3 K/mm3 (0.0-0.4) 10/17/20 05:12 Baso # (Auto) 0.1 K/mm3 (0.0-0.1) 10/17/20 05:12 Seg Neutrophils % 65.2 % (40.0-70.0) 10/17/20 05:12 Seg Neutrophils # 3.2 K/mm3 (1.8-7.7) 10/17/20 05:12 PT 14.8 Sec. (12.2-14.9) 10/16/20 18:35 INR 1.10 (0.87-1.13) 10/16/20 18:35 APTT 33.8 Sec. (24.2-36.6) 10/16/20 18:35 Sodium 138 mmol/L (137-145) 10/17/20 05:12 Potassium 4.9 mmol/L (3.6-5.0) 10/17/20 05:12 Chloride 99.6 mmol/L (98-107) 10/17/20 05:12 Carbon Dioxide 22 mmol/L (22-30) 10/17/20 05:12 Anion Gap 21 mmol/L 10/17/20 05:12 BUN 40 mg/dL (9-20) H 10/17/20 05:12 Creatinine 9.6 mg/dL (0.8-1.3) H 10/17/20 05:12 Estimated GFR 7 ml/min 10/17/20 05:12 BUN/Creatinine Ratio 4 % 10/17/20 05:12 Glucose 54 mg/dL (75-100) L 10/17/20 05:12 POC Glucose 101 mg/dL (70-105) 10/17/20 14:50 Calcium 8.5 mg/dL (8.4-10.2) 10/17/20 05:12 Total Bilirubin 0.40 mg/dL (0.1-1.2) 10/17/20 05:12 AST 12 units/L (5-40) 10/17/20 05:12 ALT < 5 units/L (7-56) L 10/17/20 05:12 Alkaline Phosphatase 261 units/L (35-129) H 10/17/20 05:12 Total Protein 7.1 g/dL (6.3-8.2) 10/17/20 05:12 Albumin 3.5 g/dL (3.9-5) L 10/17/20 05:12 Albumin/Globulin Ratio 1.0 % 10/17/20 05:12 Hepatitis A IgM Ab Non-reactive (NonReactive) 10/17/20 15:00 Hep Bs Antigen Non-reactive (Negative) 10/17/20 15:00 Hep B Core IgM Ab Non-reactive (NonReactive) 10/17/20 15:00 Hepatitis C Antibody Non-reactive (NonReactive) 10/17/20 15:00 Franco/IV: Voiding Method Toilet Active Medications - Current Medications Current Medications: Generic Name Dose Route Start Last Admin Trade Name Freq PRN Reason Stop Dose Admin Acetaminophen 650 mg 10/16/20 19:17 10/16/20 23:12 Acetaminophen 325 Mg Tab PO 650 mg Q4H PRN Administration Pain MILD(1-3)/Fever >100.5/HOWELL Famotidine 10 mg 10/18/20 10:00 Famotidine 10 Mg Tab PO QAM STEFFEN Hydromorphone HCl 0.5 mg 10/16/20 23:20 10/18/20 00:50 Hydromorphone 1 Mg/1 Ml Inj IV 0.5 mg Q3H PRN Administration Pain , Severe (7-10) Hydromorphone HCl 0.25 mg 10/18/20 08:00 Hydromorphone 1 Mg/1 Ml Inj IV 10/18/20 17:00 Q10MIN PRN Pain, Moderate (4-6) Hydromorphone HCl 0.5 mg 10/18/20 08:00 Hydromorphone 1 Mg/1 Ml Inj IV 10/18/20 17:00 Q10MIN PRN Pain , Severe (7-10) Sodium Chloride 100 mls @ 999 mls/hr 10/17/20 14:19 Nacl 0.9% IV ZOHAIB PRN Hypotension Morphine Sulfate 2 mg 10/16/20 23:20 10/17/20 21:05 Morphine 2 Mg/1 Ml Inj IV 2 mg Q4H PRN Administration Pain, Moderate (4-6) Ondansetron HCl 4 mg 10/16/20 19:17 10/17/20 13:23 Ondansetron 4 Mg/2 Ml Inj IV 4 mg Q8H PRN Administration Nausea And Vomiting Ondansetron HCl 4 mg 10/18/20 08:00 Ondansetron 4 Mg/2 Ml Inj IV 10/18/20 17:00 ONCE PRN Nausea And Vomiting Sodium Chloride 10 ml 10/16/20 22:00 10/17/20 21:06 Sodium Chloride 0.9% 10 Ml Flush Syringe IV 10 ml BID STEFFEN Administration Sodium Chloride 10 ml 10/16/20 19:17 Sodium Chloride 0.9% 10 Ml Flush Syringe IV PRN PRN LINE FLUSH
[2020-10-18] MEDS: FAMOTIDINE 10 MG TAB PO SCH (12:56)
--- NOTE | 2020-10-18 14:30 | Post Anesthesia Evaluation ---
- Post Anesthesia Evaluation Patient Participated: Yes Airway Patent: Yes Stable Respiratory Function: Yes Nausea/Vomiting: No Temp > 96.8F: Yes Pain Manageable: Yes Adequeate Hydration: Yes Anesthesia Complications: No Block Receding Appropriately: Not Applicable Patient on Ventilator: No
[2020-10-19 06:12] LABS: Hematocrit 33.5 % (35.5-45.6); Hemoglobin 10.9 gm/dl (11.8-15.2)
[2020-10-19] MEDS: MORPHINE 2 MG/1 ML INJ IV PRN (06:48)
[2020-10-19] MEDS ORDERED: traMADol 50 MG TAB PO PRN (08:13)
--- NOTE | 2020-10-19 09:17 | Progress Note ---
Assessment and Plan Patient postop day 1 placement of interposition graft secondary to ruptured Abdiel fistula in his left arm. Patient has an indwelling left internal jugular vein tunneled hemodialysis catheter for access while his graft incorporates. From a vascular standpoint, the patient may be discharged home and follow-up in our office in 2 weeks. Subjective Date of service: 10/19/20 Principal diagnosis: Ruptured AV fistula Interval history: Patient with a history of left forearm Abdiel with 2 pseudoaneurysms. Patient's presentation followed rupture of the inferior pseudoaneurysm and significant blood loss. Patient subsequently underwent placement of PermCath in his left internal jugular vein as his right internal jugular vein is occluded distally. Patient is postop day 1 excision of pseudoaneurysms with placement of interposition graft. Is a found faintly palpable thrill. Patient with minimal subcutaneous postoperative edema at the surgical site. His hand swelling is resolved. Dressing evaluated and was noted to be clean. Objective - Constitutional Vitals: Vital Signs - 12hr 10/18/20 10/19/20 10/19/20 23:00 00:09 00:32 Temperature 99.9 F H 98.5 F Pulse Rate 87 Respiratory 18 Rate Blood Pressure 120/74 O2 Sat by Pulse 98 86 Oximetry 10/19/20 10/19/20 04:31 08:11 Temperature 98.0 F 96.2 F L Pulse Rate 80 82 Respiratory 18 20 Rate Blood Pressure 138/76 136/72 O2 Sat by Pulse 95 97 Oximetry General appearance: Present: no acute distress - EENT Eyes: EOM intact ENT: hearing intact - Neck Neck: normal ROM - Respiratory Respiratory effort: normal Extremities: abnormal - Gastrointestinal General gastrointestinal: Present: deferred Rectal Exam: deferred - Genitourinary Male genitourinary: deferred - Psychiatric Psychiatric: appropriate mood/affect, cooperative - Labs CBC & Chem 7: 10/19/20 05:38 10/17/20 05:12 Labs: Abnormal lab results 10/19/20 Range/Units 05:38 Hgb 10.9 L (11.8-15.2) gm/dl Hct 33.5 L (35.5-45.6) % Medications & Allergies - Medications Allergies/Adverse Reactions: Allergies No Known Allergies Allergy (Unverified 10/16/20 15:03) Home Medications: Home Medications Medication Instructions Recorded Confirmed Last Taken Type Amiodarone [Cordarone 200 MG TAB] 200 mg PO DAILY 10/17/20 10/17/20 1 Day Ago History ~10/16/20 Aspirin EC [Halfprin EC] 81 mg PO QDAY 10/17/20 10/17/20 1 Day Ago History ~10/16/20 AtorvaSTATin [Lipitor] 40 mg PO QHS 10/17/20 10/17/20 1 Day Ago History ~10/16/20 Dolutegravir [Tivicay] 50 mg PO DAILY 10/17/20 10/17/20 1 Day Ago History ~10/16/20 Midodrine [Proamatine] 5 mg PO TID 10/17/20 10/17/20 1 Day Ago History ~10/16/20 Rilpivirine (Nf) [Edurant (Nf)] 25 mg PO QDAY 10/17/20 10/17/20 1 Day Ago History ~10/16/20 Tenofovir [Viread] 300 mg PO 1XW 10/17/20 10/17/20 3 Days Ago History ~10/14/20 carvediloL [Coreg] 3.125 mg PO BID 10/17/20 10/17/20 1 Day Ago History ~10/16/20 Active Medications: Generic Name Dose Route Start Last Admin Trade Name Freq PRN Reason Stop Dose Admin Acetaminophen 650 mg 10/16/20 19:17 10/16/20 23:12 Acetaminophen 325 Mg Tab PO 650 mg Q4H PRN Administration Pain MILD(1-3)/Fever >100.5/HOWELL Famotidine 10 mg 10/18/20 10:00 10/18/20 12:56 Famotidine 10 Mg Tab PO 10 mg QAM STEFFEN Administration Sodium Chloride 100 mls @ 999 mls/hr 10/17/20 14:19 Nacl 0.9% IV ZOHAIB PRN Hypotension Morphine Sulfate 2 mg 10/16/20 23:20 10/19/20 06:48 Morphine 2 Mg/1 Ml Inj IV 2 mg Q4H PRN Administration Pain, Moderate (4-6) Ondansetron HCl 4 mg 10/16/20 19:17 10/17/20 13:23 Ondansetron 4 Mg/2 Ml Inj IV 4 mg Q8H PRN Administration Nausea And Vomiting Sodium Chloride 10 ml 10/16/20 22:00 10/18/20 21:25 Sodium Chloride 0.9% 10 Ml Flush Syringe IV 10 ml BID STEFFEN Administration Sodium Chloride 10 ml 10/16/20 19:17 Sodium Chloride 0.9% 10 Ml Flush Syringe IV PRN PRN LINE FLUSH Tramadol HCl 50 mg 10/19/20 08:13 10/19/20 08:48 Tramadol 50 Mg Tab PO 50 mg Q12H PRN Administration Pain, Moderate (4-6)
[2020-10-19] MEDS: FAMOTIDINE 10 MG TAB PO SCH (09:52)
--- NOTE | 2020-10-19 10:09 | Consultation ---
History of Present Illness - Reason for Consult Consult date: 10/19/20 end stage renal disease - History of Present Illness Attempted to see patient yesterday but patient was in OR. Mr. Echevarria is a 55-year-old male with ESRD, HTN, HIV who presented to the ED on Wednesday night, October 16, with prolonged bleeding from the left arm AV fistula. Per patient, scab became unroofed, and patient was unable to stop bleeding. In the emergency room there was a 1 cm gap in the AV fistula. Pressu re dressing was applied to stop the bleeding. Vascular surgery/IR was consulted. Patient underwent permcath placement on , October 17 w/ HD follow. He is now POD 1 s/p revision of Left Arm Arteriovenous Fistula with Excision of Pseudoaneurysm and Repair with Interposition 7 mm Bovine Artegraft He is seen on dialysis today. Past History Past Medical History: dialysis, ESRD Past Surgical History: Other (Left Abdiel) Social history: no significant social history Family history: no significant family history Medications and Allergies Allergies Allergy/AdvReac Type Severity Reaction Status Date / Time No Known Allergies Allergy Unverified 10/16/20 15:03 Home Medications Medication Instructions Recorded Confirmed Last Taken Type Amiodarone [Cordarone 200 MG TAB] 200 mg PO DAILY 10/17/20 10/17/20 1 Day Ago History ~10/16/20 Aspirin EC [Halfprin EC] 81 mg PO QDAY 10/17/20 10/17/20 1 Day Ago History ~10/16/20 AtorvaSTATin [Lipitor] 40 mg PO QHS 10/17/20 10/17/20 1 Day Ago History ~10/16/20 Dolutegravir [Tivicay] 50 mg PO DAILY 10/17/20 10/17/20 1 Day Ago History ~10/16/20 Midodrine [Proamatine] 5 mg PO TID 10/17/20 10/17/20 1 Day Ago History ~10/16/20 Rilpivirine (Nf) [Edurant (Nf)] 25 mg PO QDAY 10/17/20 10/17/20 1 Day Ago History ~10/16/20 Tenofovir [Viread] 300 mg PO 1XW 10/17/20 10/17/20 3 Days Ago History ~10/14/20 carvediloL [Coreg] 3.125 mg PO BID 10/17/20 10/17/20 1 Day Ago History ~10/16/20 Active Meds: Active Medications Acetaminophen (Acetaminophen 325 Mg Tab) 650 mg PO Q4H PRN PRN Reason: Pain MILD(1-3)/Fever >100.5/HOWELL Last Admin: 10/16/20 23:12 Dose: 650 mg Documented by: Famotidine (Famotidine 10 Mg Tab) 10 mg PO QAM [facility] Last Admin: 10/19/20 09:52 Dose: 10 mg Documented by: Sodium Chloride (Nacl 0.9%) 100 mls @ 999 mls/hr IV ZOHAIB PRN PRN Reason: Hypotension Morphine Sulfate (Morphine 2 Mg/1 Ml Inj) 2 mg IV Q4H PRN PRN Reason: Pain, Moderate (4-6) Last Admin: 10/19/20 06:48 Dose: 2 mg Documented by: Ondansetron HCl (Ondansetron 4 Mg/2 Ml Inj) 4 mg IV Q8H PRN PRN Reason: Nausea And Vomiting Last Admin: 10/17/20 13:23 Dose: 4 mg Documented by: Sodium Chloride (Sodium Chloride 0.9% 10 Ml Flush Syringe) 10 ml IV BID [facility] Last Admin: 10/19/20 09:52 Dose: 10 ml Documented by: Sodium Chloride (Sodium Chloride 0.9% 10 Ml Flush Syringe) 10 ml IV PRN PRN PRN Reason: LINE FLUSH Tramadol HCl (Tramadol 50 Mg Tab) 50 mg PO Q12H PRN PRN Reason: Pain, Moderate (4-6) Last Admin: 10/19/20 08:48 Dose: 50 mg Documented by: Review of Systems All systems: negative Exam - Vital Signs Vital signs: Vital Signs Pulse Resp BP Pulse Ox 78 16 121/76 96 10/16/20 13:35 10/16/20 13:35 10/16/20 13:35 10/16/20 13:35 - General Appearance General appearance: well-developed, well-nourished EENT: ATNC Neck: Present: Other (RIJ permcath) Respiratory: Clear to Ascultation Heart: regular, S1S2 Gastrointestinal: Present: normal. Absent: tenderness, distended Integumentary: no rash, warm and dry Neurologic: no focal deficit, alert and oriented x3 Musculoskeletal: Present: other (no edema) Results - Lab Results 10/19/20 05:38 10/17/20 05:12 Most recent lab results Calcium 8.5 mg/dL (8.4-10.2) 10/17/20 05:12 Assessment and Plan Impression: * End stage renal disease * Malfunctioning/ruptured AVF * Hypertension * HIV * Anemia secondary to ESRD * Secondary hyperparathyroidism Plan: * HD today * Continue TTS schedule * Renal diet * Epogen TIW prn * Stable for d/c from a renal standpoint
[2020-10-19] MEDS ORDERED: SODIUM CHLORIDE 0.9% 100 ML IV PRN (10:30)
--- NOTE | 2020-10-19 12:22 | Progress Note ---
Assessment and Plan Assessment and plan: - (1) Hemorrhage of arteriovenous fistula Current Visit: Yes Status: Acute Qualifiers: Encounter type: initial encounter Qualified Code(s): T82.838A - Hemorrhage due to vascular prosthetic devices, implants and grafts, initial encounter Plan to address problem: For AV fistula repair in the morning Vascular surgery/IR consulted (2) End stage renal disease on dialysis Current Visit: Yes Status: Chronic Plan to address problem: Continue hemodialysis as per schedule (3) Hypertension Current Visit: Yes Status: Chronic Qualifiers: Hypertension type: primary hypertension Qualified Code(s): I10 - Essential (primary) hypertension Plan to address problem: Continue antihypertensives (4) HIV (human immunodeficiency virus infection) Current Visit: Yes Status: Chronic Qualifiers: HIV symptom status: asymptomatic, with no history of HIV-related illness Qualified Code(s): Z21 - Asymptomatic human immunodeficiency virus [HIV] infection status Plan to address problem: No home medications were reconciliation (5) DVT prophylaxis Current Visit: Yes Status: Acute Plan to address problem: On SCDs 10/17/30 Patient presented with bleeding from left av fistula. He was taken to OR and had Ultrasound and fluoroscopic guided placement of tunneled hemodialysis catheter, left Abdiel fistulogram with venoplasty and surgical closure of wound. His Animal Ecologist does not come here. His last dialysis was on Wednesday, 2 days ago. Will consult Nephrology sonography technologist. 10/18/20 Patient with ESRD on hemodialysis, HIV, hypertension. He presented with bleeding from left av fistula. He was taken to OR on 10/17 and had Ultrasound and fluoroscopic guided placement of tunneled hemodialysis catheter, left Abdiel fistulogram with venoplasty and surgical closure of wound. Today 10/18 had Revision of Left Arm Arteriovenous Fistula with Excision of Pseudoaneurysm and Repair with Interposition 7 mm Bovine Artegraft. 10/19/20 Patient with ESRD on hemodialysis, HIV, hypertension. He presented with bleeding from left av fistula. He was taken to OR on 10/17 and had Ultrasound and fluoroscopic guided placement of tunneled hemodialysis catheter, left Abdiel fistulogram with venoplasty and surgical closure of wound. On 10/18 had Revision of Left Arm Arteriovenous Fistula with Excision of Pseudoaneurysm and Repair with Interposition 7 mm Bovine Artegraft. For dialysis today. History Interval history: Patient presented with bleeding from left av fistula s/p surg Hospitalist Physical - Physical exam Narrative exam: Gen: Not in acute distress, lying in bed HEENT: Normocephalic, atraumatic Neck : supple, no JVD Heart:S1 and S2 reg, no murmurs, rubs or gallop Lungs: clear to auscultation bilaterally, no wheeze Abd: Soft , non tender, non distended, normal bowel sounds Ext: Dressing over surgical site left forearm, no cyanosis Neuro: Awake, alert, oriented, moves all ext - Constitutional Vitals: Temp Pulse Resp BP Pulse Ox 96.2 F L 82 20 136/72 97 10/19/20 08:11 10/19/20 08:11 10/19/20 08:11 10/19/20 08:11 10/19/20 08:11 General appearance: Present: no acute distress Results - Labs CBC & Chem 7: 10/19/20 05:38 10/17/20 05:12 Labs: Laboratory Last Values WBC 4.8 K/mm3 (4.5-11.0) 10/17/20 05:12 RBC 3.95 M/mm3 (3.65-5.03) 10/17/20 05:12 Hgb 10.9 gm/dl (11.8-15.2) L 10/19/20 05:38 Hct 33.5 % (35.5-45.6) L 10/19/20 05:38 MCV 95 fl (84-94) H 10/17/20 05:12 MCH 31 pg (28-32) 10/17/20 05:12 MCHC 32 % (32-34) 10/17/20 05:12 RDW 19.3 % (13.2-15.2) H 10/17/20 05:12 Plt Count 85 K/mm3 (140-440) L 10/17/20 05:12 Lymph % (Auto) 20.5 % (13.4-35.0) 10/17/20 05:12 [place] % (Auto) 7.2 % (0.0-7.3) 10/17/20 05:12 Eos % (Auto) 5.2 % (0.0-4.3) H 10/17/20 05:12 Baso % (Auto) 1.9 % (0.0-1.8) H 10/17/20 05:12 Lymph # (Auto) 1.0 K/mm3 (1.2-5.4) L 10/17/20 05:12 [place] # (Auto) 0.4 K/mm3 (0.0-0.8) 10/17/20 05:12 Eos # (Auto) 0.3 K/mm3 (0.0-0.4) 10/17/20 05:12 Baso # (Auto) 0.1 K/mm3 (0.0-0.1) 10/17/20 05:12 Seg Neutrophils % 65.2 % (40.0-70.0) 10/17/20 05:12 Seg Neutrophils # 3.2 K/mm3 (1.8-7.7) 10/17/20 05:12 PT 14.8 Sec. (12.2-14.9) 10/16/20 18:35 INR 1.10 (0.87-1.13) 10/16/20 18:35 APTT 33.8 Sec. (24.2-36.6) 10/16/20 18:35 Sodium 138 mmol/L (137-145) 10/17/20 05:12 Potassium 4.9 mmol/L (3.6-5.0) 10/17/20 05:12 Chloride 99.6 mmol/L (98-107) 10/17/20 05:12 Carbon Dioxide 22 mmol/L (22-30) 10/17/20 05:12 Anion Gap 21 mmol/L 10/17/20 05:12 BUN 40 mg/dL (9-20) H 10/17/20 05:12 Creatinine 9.6 mg/dL (0.8-1.3) H 10/17/20 05:12 Estimated GFR 7 ml/min 10/17/20 05:12 BUN/Creatinine Ratio 4 % 10/17/20 05:12 Glucose 54 mg/dL (75-100) L 10/17/20 05:12 POC Glucose 101 mg/dL (70-105) 10/17/20 14:50 Calcium 8.5 mg/dL (8.4-10.2) 10/17/20 05:12 Total Bilirubin 0.40 mg/dL (0.1-1.2) 10/17/20 05:12 AST 12 units/L (5-40) 10/17/20 05:12 ALT < 5 units/L (7-56) L 10/17/20 05:12 Alkaline Phosphatase 261 units/L (35-129) H 10/17/20 05:12 Total Protein 7.1 g/dL (6.3-8.2) 10/17/20 05:12 Albumin 3.5 g/dL (3.9-5) L 10/17/20 05:12 Albumin/Globulin Ratio 1.0 % 10/17/20 05:12 Hepatitis A IgM Ab Non-reactive (NonReactive) 10/17/20 15:00 Hep Bs Antigen Non-reactive (Negative) 10/17/20 15:00 Hep B Core IgM Ab Non-reactive (NonReactive) 10/17/20 15:00 Hepatitis C Antibody Non-reactive (NonReactive) 10/17/20 15:00 Franco/IV: Voiding Method Toilet Active Medications - Current Medications Current Medications: Generic Name Dose Route Start Last Admin Trade Name Freq PRN Reason Stop Dose Admin Acetaminophen 650 mg 10/16/20 19:17 10/16/20 23:12 Acetaminophen 325 Mg Tab PO 650 mg Q4H PRN Administration Pain MILD(1-3)/Fever >100.5/HOWELL Famotidine 10 mg 10/18/20 10:00 10/19/20 09:52 Famotidine 10 Mg Tab PO 10 mg QAM STEFFEN Administration Sodium Chloride 100 mls @ 999 mls/hr 10/19/20 10:30 Nacl 0.9% IV ZOHAIB PRN Hypotension Morphine Sulfate 2 mg 10/16/20 23:20 10/19/20 06:48 Morphine 2 Mg/1 Ml Inj IV 2 mg Q4H PRN Administration Pain, Moderate (4-6) Ondansetron HCl 4 mg 10/16/20 19:17 10/17/20 13:23 Ondansetron 4 Mg/2 Ml Inj IV 4 mg Q8H PRN Administration Nausea And Vomiting Sodium Chloride 10 ml 10/16/20 22:00 10/19/20 09:52 Sodium Chloride 0.9% 10 Ml Flush Syringe IV 10 ml BID STEFFEN Administration Sodium Chloride 10 ml 10/16/20 19:17 Sodium Chloride 0.9% 10 Ml Flush Syringe IV PRN PRN LINE FLUSH Tramadol HCl 50 mg 10/19/20 08:13 10/19/20 08:48 Tramadol 50 Mg Tab PO 50 mg Q12H PRN Administration Pain, Moderate (4-6)
--- NOTE | 2020-10-19 15:49 | Discharge Summary ---
Providers - Providers Date of Admission: 10/17/20 14:46 Date of discharge: 10/19/20 Attending physician: GLENN BERNAL 10/16/20 17:47 Consult to Physician [CONS] Stat Comment: Consulting Provider: ANGY RIVERO Physician Instructions: Reason For Exam: av fistula bleeding 10/17/20 13:04 Consult to Physician [CONS] Routine Comment: Consulting Provider: DARIEN AUGUSTE Physician Instructions: Reason For Exam: ESRD on dialysis Primary care physician: CHANNEL MANAGER Hospitalization Condition: Fair Hospital course: 55-year-old male with history of end-stage renal disease hypertension and HIV comes in for continuous bleeding from the AV fistula site on the left arm. Patient went to dialysis , had dialysis on day of presentation. After dialysis the site of AV fistula was continuously bleeding because of which patient was sent to the emergency room. In the emergency room there was a 1 cm gap in the AV fistula. Pressure dressing was applied to stop the bleeding. Vascular surgery/IR was consulted. No syncope or lightheadedness. No chest pain or shortness of breath. Bleeding was controlled in the emergency room with Mehran wrap pressure dressing. No fever or chills. No exposure to Covid virus. He was admitted, evaluated by vas Surgeon . He was taken to OR on 10/17 and had Ultrasound and fluoroscopic guided placement of tunneled hemodialysis catheter, left Abdiel fistulogram with venoplasty and surgical closure of wound. Hemodialysis catheter was used for dialysis. On 10/18 had Revision of Left Arm Arteriovenous Fistula with Excision of Pseudoaneurysm and Repair with Interposition 7 mm Bovine Artegraft..Dialysis was done and he was then discharged home. (1) Hemorrhage of arteriovenous fistula Current Visit: Yes Status: Acute Qualifiers: Encounter type: initial encounter Qualified Code(s): T82.838A - Hemorrhage due to vascular prosthetic devices, implants and grafts, initial encounter Plan to address problem: For AV fistula repair in the morning Vascular surgery/IR consulted (2) End stage renal disease on dialysis Current Visit: Yes Status: Chronic Plan to address problem: Continue hemodialysis as per schedule (3) Hypertension Current Visit: Yes Status: Chronic Qualifiers: Hypertension type: primary hypertension Qualified Code(s): I10 - Essential (primary) hypertension Plan to address problem: Continue antihypertensives (4) HIV (human immunodeficiency virus infection) Current Visit: Yes Status: Chronic Qualifiers: HIV symptom status: asymptomatic, with no history of HIV-related illness Qualified Code(s): Z21 - Asymptomatic human immunodeficiency virus [HIV] infection status Plan to address problem: No home medications were reconciliation (5) DVT prophylaxis Current Visit: Yes Status: Acute Plan to address problem: On SCDs 10/17/30 Patient presented with bleeding from left av fistula. He was taken to OR and had Ultrasound and fluoroscopic guided placement of tunneled hemodialysis catheter, left Abdiel fistulogram with venoplasty and surgical closure of wound. His Retrofit Installer does not come here. His last dialysis was on Wednesday, 2 days ago. Will consult Nephrology coroner forensic technician. 10/18/20 Patient with ESRD on hemodialysis, HIV, hypertension. He presented with bleeding from left av fistula. He was taken to OR on 10/17 and had Ultrasound and fluoroscopic guided placement of tunneled hemodialysis catheter, left Abdiel fistulogram with venoplasty and surgical closure of wound. Today 10/18 had Revision of Left Arm Arteriovenous Fistula with Excision of Pseudoaneurysm and Repair with Interposition 7 mm Bovine Artegraft. 10/19/20 Patient with ESRD on hemodialysis, HIV, hypertension. He presented with bleeding from left av fistula. He was taken to OR on 10/17 and had Ultrasound and fluoroscopic guided placement of tunneled hemodialysis catheter, left Abdiel fistulogram with venoplasty and surgical closure of wound. On 10/18 had Revision of Left Arm Arteriovenous Fistula with Excision of Pseudoaneurysm and Repair with Interposition 7 mm Bovine Artegraft. For dialysis today. Disposition: DC- TO HOME OR SELFCARE Final Discharge Diagnosis (Prints w/discharge instructions): 1.Bleeding from av fistula Time spent for discharge: 36 mins - Discharge Diagnoses (1) Hemorrhage of arteriovenous fistula Status: Acute Qualifiers: Encounter type: initial encounter Qualified Code(s): T82.838A - Hemorrhage due to vascular prosthetic devices, implants and grafts, initial encounter (2) End stage renal disease on dialysis Status: Chronic (3) HIV (human immunodeficiency virus infection) Status: Chronic Qualifiers: HIV symptom status: asymptomatic, with no history of HIV-related illness Qualified Code(s): Z21 - Asymptomatic human immunodeficiency virus [HIV] infection status (4) Hypertension Status: Chronic Qualifiers: Hypertension type: primary hypertension Qualified Code(s): I10 - Essential (primary) hypertension Core Measure Documentation - Palliative Care Palliative Care/ Comfort Measures: Not Applicable - Core Measures Any of the following diagnoses?: none Exam - Constitutional Vitals: Temp Pulse Resp BP Pulse Ox 98.2 F 111 H 20 126/87 98 10/19/20 10:55 10/19/20 13:30 10/19/20 10:55 10/19/20 13:30 10/19/20 10:55 Plan Activity: no restrictions Diet: low salt, renal Plan of Treatment: 1.Follopw up with PCP in 1 week. 2.Continue Hemodialysis as scheduled 3.Follow up with Dr. Angy Rivero, vas surg in 2 weeks Follow up with: PRIMARY CARE, [Primary Care Provider] - 3-5 Days Prescriptions: traMADoL [Ultram 50 MG tab] 50 mg PO Q12H PRN #10 tablet PRN Reason: Pain, Moderate (4-6)
[2020-10-19 17:19] VITALS: BP 119/82
== END 2020-10-19 18:20 | disposition home or self-care (01) | DRG 252 ==
LOC: ED 13:31 → 4A 23:20 → OBSVTOIN 10-17 14:46
PROVIDERS: ADMIT Internal Medicine; ATTEND Internal Medicine
PROC: 5A1D70Z Performance of Urinary Filtration, Intermittent, Less than 6 Hours Per Day (ICD-10-PCS; 2020-10-17)
PROC: 5A1D70Z Performance of Urinary Filtration, Intermittent, Less than 6 Hours Per Day (ICD-10-PCS; 2020-10-17)
PROC: 0JH63XZ Insertion of Tunneled Vascular Access Device into Chest Subcutaneous Tissue and Fascia, Percutaneous Approach (ICD-10-PCS; 2020-10-17)
PROC: 02H633Z Insertion of Infusion Device into Right Atrium, Percutaneous Approach (ICD-10-PCS; 2020-10-17)
PROC: B5181ZA Fluoroscopy of Superior Vena Cava using Low Osmolar Contrast, Guidance (ICD-10-PCS; 2020-10-17)
PROC: B5151ZZ Fluoroscopy of Bilateral Jugular Veins using Low Osmolar Contrast (ICD-10-PCS; 2020-10-17)
PROC: B51W1ZZ Fluoroscopy of Dialysis Shunt/Fistula using Low Osmolar Contrast (ICD-10-PCS; 2020-10-17)
PROC: 05WY0KZ Revision of Nonautologous Tissue Substitute in Upper Vein, Open Approach (ICD-10-PCS; principal; 2020-10-18)
DX: T82.838A Hemorrhage due to vascular prosthetic devices, implants and grafts, initial encounter (principal); N18.6 End stage renal disease; I12.0 Hypertensive chronic kidney disease with stage 5 chronic kidney disease or end stage renal disease; Y84.1 Kidney dialysis as the cause of abnormal reaction of the patient, or of later complication, without mention of misadventure at the time of the procedure; Z21 Asymptomatic human immunodeficiency virus [HIV] infection status; Z99.2 Dependence on renal dialysis; Z79.899 Other long term (current) drug therapy; Z79.891 Long term (current) use of opiate analgesic; Z79.01 Long term (current) use of anticoagulants; Y92.89 Other specified places as the place of occurrence of the external cause; Z82.49 Family history of ischemic heart disease and other diseases of the circulatory system
CPT/HCPCS: 36415; 36558; 36902; 77001; 80053; 80074; 82962; 85014; 85018; 85025; 85610; 85730; 88304; 88311; 96372; 99291; G0378; C1725; C1750; C1768; C1894; J1170; J1644; J2250; J2270; J2405; J2704; J3010; J3490; J7040; J7050; Q9967